=== PATIENT | male | born 1970 | race American Indian/Alaskan Native ===

== ENCOUNTER 2016-11-24 15:21 | Emergency (ER) | payer BC ==
[2016-11-24 15:32] VITALS: RESP 18; TEMP 98; BMI 25.0
[2016-11-24 16:12] LABS: ADD MANUAL DIFF? NO
[2016-11-24 16:23] LABS: BASO # 0.04 K/mm3 (0.0-2.0); BASO % 0.6 % (0.0-3.0); EOS % 0.6 % (1.5-5.0); GRAN # 3.42 (1.4-6.5); GRAN % 54.5 % (50.0-68.0); HEMATOCRIT 41.7 % (42.0-52.0); LYMPH # 2.1 (1.2-3.4); LYMPH % 33.9 % (22.0-35.0); MEAN CELL VOLUME 85.6 fL (80.0-105.0); MEAN CORPUSCULAR HEMOGLOBIN 29.6 pg (25.0-35.0); MEAN CORPUSCULAR HGB CONC 34.5 g/dl (31.0-37.0); MEAN PLATELET VOLUME 10.2 fl (7.0-11.0); MONO # 0.7 (0.1-0.6); MONO % 10.4 % (1.0-6.0); PLATELET COUNT 248 10^3/uL (120.0-450.0); RED CELL DISTRIBUTION WIDTH 13.3 % (11.5-14.5); WHITE BLOOD COUNT 6.3 10^3/ul (4.5-11.0)
--- NOTE | 2016-11-24 16:30 | ED PDOC ---
Arrival/HPI - General Chief Complaint: Chest Pain Time Seen by Provider: 11/24/16 15:31 Historian: Patient - History of Present Illness Narrative History of Present Illness (Text): 11/24/16 16:02 A 46 year old male, whose past medical history includes diabetes and hypertension, presents to the emergency department complaining of chest palpations and chest discomfort for the past 3 weeks. Pain is intermittent and described as a squeezing/tightness sensation. Patient reports last summer he was diagnosed with erectile dysfunction and in 08/24 he began to take some Herbal pills for it. Patient states once the chest pain started he cut down on taking the pills from 2 times a days to just 2 days prior to intercourse and notes it to be less. Patient denies any shortness of breath, dizziness, nausea , vomiting, headache or other complaints at this time. Patient notes he does not have any chest pain at this time. PMD: Dr. Adams Time/Duration: > week (3 weeks) Symptom Onset: Sudden Symptom Course: Intermittent Quality: Tightness, Other (squeezing) Activities at Onset: Rest Context: Home Past Medical History - Provider Review Nursing Documentation Reviewed: Yes - Infectious Disease Hx of Infectious Diseases: None - Cardiac Hx Hypertension: Yes - Neurological Hx Paralysis: No - Endocrine/Metabolic Hx Diabetes Mellitus Type 2: Yes - Hematological/Oncological Hx Blood Transfusions: No Hx Blood Transfusion Reaction: No - Musculoskeletal/Rheumatological Hx Musculoskeletal Disorders: No - Psychiatric Hx Emotional Abuse: No Hx Physical Abuse: No Hx Substance Use: No - Surgical History Other/Comment: Hernia repair - Anesthesia Hx Anesthesia Reactions: No Hx Malignant Hyperthermia: No - Suicidal Assessment Feels Threatened In Home Enviroment: No Family/Social History - Physician Review Nursing Documentation Reviewed: Yes Family/Social History: Unknown Family HX Smoking Status: Never Smoked Hx Alcohol Use: Yes Frequency of alcohol use: Socially Hx Substance Use: No Allergies/Home Meds Allergies/Adverse Reactions: Allergies No Known Allergies Allergy (Verified 11/24/16 15:44) Home Medications: Home Meds Medication Instructions Recorded Confirmed Aliskiren [Tekturna] 300 mg PO DAILY 02/28/12 02/28/12 Atorvastatin Calcium 10 mg PO DAILY 02/28/12 02/28/12 Metformin Hydrochloride [Metformin] 500 mg PO DAILY 02/28/12 02/28/12 Multivitamin and Minerals1 1 tab PO DAILY 02/28/12 02/28/12 [Centrum] Review of Systems - Physician Review All systems were reviewed & negative as marked: Yes - Review of Systems Constitutional: absent: Fatigue Respiratory: absent: SOB Cardiovascular: Chest Pain (not at this time) Gastrointestinal: absent: Nausea, Vomiting Genitourinary Male: absent: Dysuria Neurological: absent: Headache, Dizziness Physical Exam Vital Signs Reviewed: Yes Vital Signs Temp Pulse Resp BP Pulse Ox 11/24/16 18:17 87 18 145/87 98 11/24/16 17:21 94 H 18 145/71 100 11/24/16 15:31 98.0 F 102 H 18 149/77 100 Temperature: Afebrile Blood Pressure: Normal Pulse: Tachycardic Respiratory Rate: Normal Appearance: Positive for: Well-Appearing, Non-Toxic, Comfortable Pain Distress: None Mental Status: Positive for: Alert and Oriented X 3 - Systems Exam Head: Present: Atraumatic, Normocephalic Pupils: Present: PERRL Conjunctiva: Present: Normal Mouth: Present: Moist Mucous Membranes Pharnyx: No: Normal, ERYTHEMA Neck: Present: Normal Range of Motion Respiratory/Chest: Present: Clear to Auscultation, Good Air Exchange. No: Respiratory Distress, Accessory Muscle Use Cardiovascular: Present: Normal S1, S2, Tachycardic. No: Murmurs Abdomen: Present: Normal Bowel Sounds. No: Tenderness, Distention, Peritoneal Signs Back: Present: Normal Inspection Upper Extremity: Present: Normal Inspection. No: Cyanosis, Edema Lower Extremity: Present: Normal Inspection. No: Edema Neurological: Present: GCS=15, CN II-XII Intact, Speech Normal Skin: Present: Warm, Dry, Normal Color. No: Rashes Psychiatric: Present: Alert, Oriented x 3, Normal Insight, Normal Concentration Medical Decision Making ED Course and Treatment: 11/24/16 16:02 Impression: A 46 year old male with chest pain. Differential Diagnosis include but are not limited to: ACS Plan: -- EKG -- Chest X-ray -- Labs -- Reassess and disposition Progress Notes: EKG #1: Ordered, reviewed, and independently interpreted the EKG. Rate : 114 BPM Rhythm : Sinus tachycardia Intervals: QRS is 122 EKG #2: Rate: 82 BPM Rhythm: NSR Intervals: Normal No ST/T changes 11/24/16 17:47 Chest X-ray Impression: As read by me, No active disease. 11/24/16 18:05 Patient with noted history; initial ekg showed tachycardia which resolved but no ST/T changes. Repeat EKG is entirely normal. No cp here and no sob. Labs with elevated glucose but otherwise unremarkable. Patient has had symptoms x 3 weeks and negative CE. Case discussed with Dr. Adams, who is aware and states to have to patient come to his office tomorrow for a follow up visit. On re-evaluation, the patient is in no acute distress. I have discussed the results and plan with the patient, who expresses understanding. Patient in agreement with plan to discharged home. Patient is stable for discharge. Patient was instructed to follow up with Dr. Adams tomorrow or return if symptoms worsen or new concerning symptoms arise. - Lab Interpretations Lab Results: 11/24/16 15:50 11/24/16 15:50 Lab Results 11/24/16 15:50: WBC 6.3, RBC 4.87, Hgb 14.4, Hct 41.7 L, MCV 85.6, MCH 29.6, MCHC 34.5, RDW 13.3, Plt Count 248, MPV 10.2, Gran % 54.5, Lymph % (Auto) 33.9, [place] % (Auto) 10.4 H, Eos % (Auto) 0.6 L, Baso % (Auto) 0.6, Gran # 3.42, Lymph # 2.1, [place] # 0.7 H, Eos # 0.0, Baso # 0.04, PT 10.9, INR 1.01, APTT 26.1, Sodium 136, Potassium 4.7, Chloride 99, Carbon Dioxide 26, Anion Gap 16, BUN 12 , Creatinine 0.7, Est GFR ( Amer) > 60, Est GFR (Non-Af Amer) > 60, Random Glucose 409 H*, Calcium 9.8, Magnesium 1.6 L, Total Bilirubin 0.7, AST 18 , ALT 41, Alkaline Phosphatase 67, Lactate Dehydrogenase 291 L, Total Creatine Kinase 63, Troponin I < 0.01, Total Protein 6.6, Albumin 3.9, Globulin 2.7, Albumin/Globulin Ratio 1.4, Lipase 171 I have reviewed the lab results: Yes - RAD Interpretation Radiology Orders: 11/24/16 16:44 CHEST TWO VIEWS (PA/LAT) [RAD] Stat - Medication Orders Current Medication Orders: Discontinued Medications Sodium Chloride (Sodium Chloride 0.9%) 1,000 mls @ 999 mls/hr IV .Q1H1M STA Stop: 11/24/16 17:51 Last Admin: 11/24/16 17:04 Dose: 999 MLS/HR eMAR Start Stop Document 11/24/16 17:04 [facility] (Rec: 11/24/16 17:04 [facility] [id number]) Intravenous Solution Start Date 11/24/16 Start Time 17:04 End Date 11/24/16 End time 18:05 Total Infusion Time 61 Insulin Human Regular (Humulin R) 8 units IVP ONCE STA Stop: 11/24/16 16:52 Last Admin: 11/24/16 18:06 Dose: 8 UNITS IVP Administration Document 11/24/16 18:06 [facility] (Rec: 11/24/16 18:06 [facility] [id number]) Charges for Administration # of IVP Administrations 1 - Scribe Statement The provider has reviewed the documentation as recorded by the Mercedesibdaniele Hand Provider Scribe Attestation: All medical record entries made by the Scribe were at my direction and personally dictated by me. I have reviewed the chart and agree that the record accurately reflects my personal performance of the history, physical exam, medical decision making, and the department course for this patient. I have also personally directed, reviewed, and agree with the discharge instructions and disposition. Disposition/Present on Arrival - Present on Arrival Any Indicators Present on Arrival: No History of DVT/PE: No History of Uncontrolled Diabetes: No Urinary Catheter: No History of Decub. Ulcer: No History Surgical Site Infection Following: None - Disposition Have Diagnosis and Disposition been Completed?: Yes Diagnosis: Atypical chest pain Disposition: HOME/ ROUTINE Disposition Time: 19:15 Patient Plan: Discharge Condition: GOOD Discharge Instructions (ExitCare): Chest Pain (ED) Additional Instructions: Follow up with Dr. Adams tomorrow with plan for arrangements for cardiology referral. Stop all voluntary medications, including Cialis and Herbal Virility. Drink plenty of fluids. Return to the emergency department if any new concerning symptoms. Referrals: Parmjit Adams DO [Primary Care Provider] - Follow up with primary Dennis May MD [Staff Provider] - Follow up with primary
[2016-11-24 16:33] LABS: INR 1.01 (0.93-1.08); PARTIAL THROMBOPLASTIN TIME 26.1 Seconds (23.7-30.8)
[2016-11-24 16:43] LABS: ALB/GLOB RATIO 1.4 (1.1-1.8); ALKALINE PHOSPHATASE 67 U/L (38-133); ALT/SGPT 41 U/L (7-56); AST/SGOT 18 U/L (15-59); BILIRUBIN,TOTAL 0.7 mg/dL (0.2-1.3); BLOOD UREA NITROGEN 12 mg/dL (7-21); CALCIUM 9.8 mg/dL (8.4-10.5); CARBON DIOXIDE 26 mmol/L (21-33); CHLORIDE 99 mmol/L (98-107); GFR AFRICAN-AMERICAN > 60; LIPASE 171 U/L (23-300); MAGNESIUM 1.6 mg/dL (1.7-2.2); POTASSIUM 4.7 mmol/L (3.6-5.0); SODIUM 136 mmol/L (132-148); TOTAL PROTEIN 6.6 g/dL (5.8-8.3)
[2016-11-24 16:46] LABS: GLUCOSE,RANDOM 409 mg/dL (70-110)
[2016-11-24 16:54] LABS: TROPONIN I < 0.01 ng/mL
[2016-11-24] MEDS: Sodium Chloride 0.9% 1,000 ML IV STA (17:04)
--- NOTE | 2016-11-24 17:44 | CARD ---
APPROVED REPORT EKG Measurement Heart [id number] <Conclusion> Sinus tachycardia Nonspecific ST changes Borderline ECG
[2016-11-24] MEDS: Insulin Regular 1 UNITS/0.01 ML ML IVP STA (18:06)
[2016-11-24 18:18] VITALS: PULSE 87; O2SAT 98
[2016-11-24 19:32] VITALS: BP 148/94
--- NOTE | 2016-11-25 08:15 | RAD ---
HISTORY: chest pain COMPARISON: No prior. TECHNIQUE: Chest PA and lateral FINDINGS: LUNGS: No active pulmonary disease. PLEURA: No significant pleural effusion identified. No pneumothorax apparent. CARDIOVASCULAR: Normal. OSSEOUS STRUCTURES: No significant abnormalities. VISUALIZED UPPER ABDOMEN: Normal. OTHER FINDINGS: None. IMPRESSION: No active disease.
--- NOTE | 2016-11-25 15:33 | CARD ---
APPROVED REPORT EKG Measurement Heart [id number] ID [id number] <Conclusion> Normal sinus rhythm Normal ECG
== END 2016-11-24 19:32 | disposition home or self-care (01) ==
LOC: ED 15:21
DX: R07.89 Other chest pain (principal); I10 Essential (primary) hypertension; E11.9 Type 2 diabetes mellitus without complications
CPT/HCPCS: 71020; 80053; 82550; 83615; 83690; 83735; 84484; 85025; 85610; 85730; 93005; 96361; 96374; 99284; J7040